=== PATIENT | female | born 1965 | race Asian ===

== ENCOUNTER 2016-10-27 23:04 | Emergency (ER) | payer BC ==
[~2016-10-27] VITALS: Ht 157.5 cm; Wt 62.0 kg
[~2016-10-27 23:04] MED LIST: AZIT500T3 PO; IBUP-1542 PO
[2016-10-27 23:23] VITALS: Ht 157.5 cm; Wt 62.0 kg
[2016-10-28 00:52] LABS: ADD UMIC YES; URINE BILIRUBIN (Dip) NEGATIVE (NEGATIVE); URINE BLOOD (Dip) 2+ (NEGATIVE); URINE COLOR LT. YELLOW (YELLOW); URINE GLUCOSE (Dip) NEGATIVE (NEGATIVE); URINE KETONES (Dip) NEGATIVE (NEGATIVE); URINE LEUKOCYTE ESTERASE (Dip) 3+ (NEGATIVE); URINE NITRITE (Dip) POSITIVE (NEGATIVE); URINE TOTAL PROTEIN (Dip) NEGATIVE (NEGATIVE); URINE UROBILINOGEN (Dip) 0.2 E.U./dL (0.1-1.0)
[2016-10-28] MEDS ORDERED: IBUPROFEN 600 MG TAB PO ONE (01:00)
[2016-10-28 01:13] LABS: BACTERIA,URINE MODERATE; SQUAMOUS EPITHELIAL CELL,UR MODERATE
[2016-10-28] MEDS ORDERED: CEFTRIAXONE 1 GM INJ IM ONE (01:30)
[2016-10-28] MEDS ORDERED: LIDOCAINE 2% (MDV) 20 ML INJ INJ ONE (01:30)
[2016-10-28] MEDS ORDERED: NITR-58 PO (01:35)
--- NOTE | 2016-10-28 01:40 | ERD ---
ER Documentation Chief Complaint Date/Time DATE: 10/28/16 TIME: 01:37 Chief Complaint fever x 2 days. also c/o burning, painful urination. hx of uti HPI This is a 51-year-old female that presents to the ER with a fever that started yesterday. Patient is complaining of urinary frequency and dysuria and she has had a history of urinary tract infections. Patient denies any back pain, flank pain, nausea, vomiting, diarrhea. She denies any cough or cold symptoms. She denies any abdominal pain. Patient denies any constipation. Patient denies any neck pain or neck stiffness. ROS 12 point review of systems was done, all negative except per HPI. Medications Home Meds Active Scripts Nitrofurantoin Monohyd Macrocr* (Macrobid*) 100 Mg Capsr, 100 MG PO BID for 7 Days, CAP Prov:KERRY NOVA 10/28/16 Ibuprofen* (Motrin*) 600 Mg Tab, 600 MG PO TID for PAIN AND/OR INFLAMMATION, # 30 TAB Prov:HARLAN BLANC MD 08/21/15 Azithromycin* (Zithromax*) 500 Mg Tablet, 500 MG PO DAILY for 5 Days, TAB Prov:HARLAN BLANC MD 08/21/15 Allergies Allergies: Coded Allergies: diphenhydramine (Verified Allergy, Unknown, 08/21/15) PMhx/Soc Medical and Surgical Hx: pt denies Medical Hx, pt denies Surgical Hx History of Surgery: Yes (KLEIN HYSTERECTOMY) Anesthesia Reaction: No Hx Neurological Disorder: No Hx Respiratory Disorders: No Hx Cardiac Disorders: Yes (HTN, RESOLVED) Hx Psychiatric Problems: No Hx Miscellaneous Medical Probl: Yes (OVARIAN CA) Hx Alcohol Use: No Hx Substance Use: No Hx Tobacco Use: No Smoking Status: Never smoker Physical Exam Vitals Vital Signs Date Time Temp Pulse Resp B/P Pulse Ox O2 Delivery O2 Flow Rate FiO2 10/27/16 23:23 102.6 102 20 138/64 96 Physical Exam GENERAL: The patient is well developed and appropriate for usual state of health , in no apparent distress. HEENT: Atraumatic CHEST: Clear to auscultation bilaterally. There are no rales, wheezes or rhonchi. HEART: Regular rate and rhythm. No murmurs, clicks, rubs or gallops. ABDOMEN: Soft, nontender and nondistended. Good bowel sounds. No rebound or guarding. No gross peritonitis. No gross organomegaly or masses. No Haque sign or McBurney point tenderness. BACK: No midline or flank tenderness. EXTREMITIES: Equal pulses bilaterally. There is no peripheral clubbing, cyanosis or edema. No focal swelling or erythema. Full range of motion. Grossly neurovascularly intact. NEURO: Alert and oriented. Cranial nerves II through XII are intact Results 24 hrs Laboratory Tests Test 10/28/16 00:40 Urine Color LT. YELLOW Urine Clarity CLOUDY Urine pH 6.0 Urine Specific [place] 1.015 Urine Ketones NEGATIVE Urine Nitrite POSITIVE Urine Bilirubin NEGATIVE Urine Urobilinogen 0.2 E.U./dL Urine Leukocyte Esterase 3+ Urine Microscopic RBC 5-10/HPF Urine Microscopic WBC >200/HPF Urine Squamous Epithelial Cells MODERATE Urine Bacteria MODERATE Urine Hemoglobin 2+ Urine Glucose NEGATIVE% Urine Total Protein NEGATIVE Current Medications Medications (Trade) Dose Ordered Sig/Rosita Route PRN Reason Start Time Stop Time Status Last Admin Dose Admin Ibuprofen (Motrin) 600 mg ONCE ONCE PO 10/28/16 01:00 10/28/16 01:01 DC 10/28/16 01:09 Ceftriaxone Sodium (Rocephin) 1 gm ONCE ONCE IM 10/28/16 01:30 10/28/16 01:31 DC 10/28/16 01:28 Lidocaine (Xylocaine 2% (Mdv) 20 ml) 20 ml ONCE ONCE INJ 10/28/16 01:30 10/28/16 01:31 DC 10/28/16 01:28 Procedures/MDM This is a 51-year-old female presents to the ER with a fever and urinary frequency and dysuria. Patient did have a significant urinary tract infection on urinalysis. Patient was given Rocephin in the ER without any complications. She will be sent home with Macrobid. Patient for pyelonephritis is low as there is no CVA tenderness and patient does not have any nausea or vomiting. She is also well-appearing. Patient is to follow-up with her primary care doctor within 1-2 days return to ER sooner if symptoms worsen. My medical decision making shared with the patient she understands and agrees with plan. Departure Diagnosis: Primary Impression: UTI (urinary tract infection) Condition: Stable Patient Instructions: Understanding Urinary Tract Infections (UTIs) Additional Instructions: Call your primary care doctor TOMORROW for an appointment during the next 1-2 days.See the doctor sooner or return here if your condition worsens before your appointment time. KERRY NOVA Oct 28, 2016 01:40
[2016-10-28] MEDS ORDERED: IBUP-1542 PO (01:52)
[2016-10-28 01:56] VITALS: PULSE 87; RESP 17; TEMP 102
== END 2016-10-28 01:57 | disposition home or self-care (01) ==
LOC: FTE 23:04
DX: N39.0 Urinary tract infection, site not specified (principal); I10 Essential (primary) hypertension; Z85.43 Personal history of malignant neoplasm of ovary
CPT/HCPCS: 81001; 96372; J0696; Z7502; Z7610